=== PATIENT | female | born 1970 | race Caucasian/White ===

== ENCOUNTER → 2019-05-12 | Outpatient (CLI) | payer MEDICAID ==
[2019-05-12 12:52] LABS: Basophils # (A) 0.1 k/uL (0-0.2); Basophils % (A) 1 %; Eosinophils # (A) 0.2 k/uL (0-0.7); Eosinophils % (A) 2 %; HCT 38.5 % (34.0-46.0); INR 1.1 (<1.2); Lymphocytes # (A) 1.6 k/uL (1.0-4.8); Lymphocytes % (A) 25 %; MCH 32.1 pg (25.0-35.0); MCHC 33.7 g/dL (31.0-37.0); MCV 95.4 fL (80.0-100.0); Mean Platelet Volume 6.1; Monocytes # (A) 0.3 k/uL (0-1.0); Monocytes % (A) 4 %; Neutrophils # (A) 4.4 k/uL (1.3-7.7); Neutrophils % (A) 67 %; Platelet Count 273 k/uL (150-450); Prothrombin Time 11.3 sec (9.0-12.0); RBC 4.04 m/uL (3.80-5.40); WBC 6.5 k/uL (3.8-10.6)
[2019-05-12 12:58] LABS: Potassium 4.6 mmol/L (3.5-5.1)
== END | disposition home or self-care (01) ==
LOC: LABPAT 12:01
PROVIDERS: ATTEND Orthopaedic Surgery
DX: Z01.818 Encounter for other preprocedural examination (principal); Z01.812 Encounter for preprocedural laboratory examination; M16.12 Unilateral primary osteoarthritis, left hip
CPT/HCPCS: 36415; 80051; 85025; 85610; 87070; 93005

== ENCOUNTER 2019-05-18 08:33 | Inpatient (IN) | payer MEDICAID ==
[2019-05-11 15:36] VITALS: BMI 22.1
--- NOTE | 2019-05-17 19:04 | HP ---
HISTORY AND PHYSICAL DATE OF SURGERY: 05/18/2019 Reba Manzano is a 49-year-old patient seen with symptomatic left hip osteoarthritis. After treatment options were discussed with her, she elected to proceed with direct anterior left total hip arthroplasty. Consent regarding the procedure was obtained. PAST MEDICAL HISTORY: Noncontributory. PAST SURGICAL HISTORY: section. MEDICATIONS: None. ALLERGIES: SULFA and CODEINE. SOCIAL HISTORY: She smokes 1 pack of cigarettes daily. PHYSICAL EXAMINATION: Evaluation of the left hip, she has very limited range of motion with severe pain, diffuse tenderness about the hip girdle. Straight leg raise is negative. Her distal neurovascular exam is intact. RADIOGRAPHS: Radiographs of the left hip reveal severe osteoarthritic changes. IMPRESSION: 1. Left hip osteoarthritis. 2. Tobacco use. PLAN: Direct anterior left total hip arthroplasty. MMODL / IJN: [id number] /
[~2019-05-18 08:33] MED LIST: ACETAMINOPHEN TAB 500 MG TAB PO ONE; LIDOCAINE 1% 20 ML VIAL (10MG/ML) FOR IV START INTRADERMA PRN; MELOXICAM 7.5 MG TAB PO ONE; MIDAZOLAM 2 MG/2 ML VIAL IV PRN; ROPIVACAINE 246.25 MG, EPINEPHrine 0.5 MG, KETOROLAC 30 MG, cloNIDine HCL/PF 80 MCG, WA... MISCELLANE ONE; TRANEXAMIC ACID 1,000 MG in SODIUM CHLORIDE 0.9% 100 ML IVPB ONE; fentaNYL (PF) 50 MCG/ML 2 ML AMP IV PRN
[2019-05-18] MEDS: LACTATED RINGERS 1,000 ML IV SCH ×6 (09:10→17:16)
[2019-05-18] MEDS ORDERED: DEXAMETHASONE SOD PHOSPHATE 10 MG/ML 1 ML VIAL IV ONE (09:15)
[2019-05-18] MEDS ORDERED: ONDANSETRON 4 MG/2 ML VIAL IVP ONE (09:15)
[2019-05-18] MEDS ORDERED: MIDAZOLAM PF (FBP) 2 MG/2 ML VIAL IV ONE (09:40)
[2019-05-18] MEDS ORDERED: ceFAZolin 3,000 MG in SODIUM CHLORIDE 0.9% IRRIGATIO 3,000 ML IRRIGATION ONE (10:36)
[2019-05-18] MEDS ORDERED: LACTATED RINGERS 1,000 ML IV ONE (11:57)
[2019-05-18] MEDS ORDERED: NALOXONE 0.4 MG/ML 1 ML VIAL IV PRN (12:03)
[2019-05-18] MEDS ORDERED: HYDROcodone/APAP 5-325MG 1 EACH TAB PO PRN (12:03)
[2019-05-18] MEDS ORDERED: traMADol 50 MG TAB PO PRN (12:03)
[2019-05-18] MEDS ORDERED: ONDANSETRON 4 MG/2 ML VIAL IVP PRN (12:03)
[2019-05-18] MEDS ORDERED: HYDROmorphone 1 MG/ML 1 ML SYRINGE IVP PRN (12:03)
[2019-05-18] MEDS ORDERED: HYDROmorphone 0.5 MG/0.5 ML SYRINGE IVP PRN ×2 (12:03)
--- NOTE | 2019-05-18 12:03 | P.OP ---
Date of Procedure: 05/18/19 Preoperative Diagnosis: Left hip osteoarthritis Postoperative Diagnosis: Left hip osteoarthritis Procedure(s) Performed: Direct anterior left total hip arthroplasty Implants: 1. Depuy Actis size 3 standard collar press-fit femoral stem 2. Depuy pinnacle 50 mm press-fit acetabular shell 3. Depuy pinnacle polyethylene acetabular liner neutral 32 mm ID 50 mm OD 4. Depuy metal femoral head 32 mm +13 Anesthesia: local, spinal Surgeon: Jerome Gatica Material Man #1: Patel Bryant Estimated Blood Loss (ml): 300 Pathology: other (Femoral head) Condition: stable Disposition: PACU Indications for Procedure: 49-year-old patient seen with symptomatic left hip osteoarthritis. After treatment options were discussed, she elected to proceed with left total hip arthroplasty. Operative Findings: see description of procedure Description of Procedure: The patient was taken to the operative suite. Patient underwent a spinal anesthetic by the department of anesthesia. Patient was then transferred to the [place] table. Patient was given preoperative IV antibiotics and TXA. Both lower extremities were placed in standard leg spars. The hip was then prepped and draped in the normal sterile orthopedic fashion. A standard anterior incision was made beginning 3 cm lateral and 1 cm distal to the ASIS extending 10 cm. Dissection was then carried down through the subcutaneous soft tissues down to the fascia overlying the tensor fascia faizan. An incision was now made through the fascia. Careful dissection was taken down exposing the tensor fascia faizan muscle. A Cobra retractor was now placed along the medial femoral neck and a second one along the lateral femoral neck. The venous circumflex vessels were now identified, cauterized and clipped. We identified the anterior hip capsule. An incision was made through the hip capsule along the lateral border. I performed a partial anterior capsulectomy. Retractors were now placed around the femoral neck itself. A femoral neck cut was now made with a sagittal saw. It was completed with an osteotome at the lateral neck area. The femoral head was now removed without difficulty. The extremity was now rotated to 45 of external rotation. It was locked in position. Residual labrum was now debrided out. Serial reaming was performed of the acetabulum while Sagar SIFUENTES assisted holding an anterior retractor for exposure. Once we reached the appropriate size and a trial was position and fit nicely. The appropriate size was now chosen opened and made available. It was introduced into the acetabulum without difficulty. The C-arm/fluoroscopy was now brought into the operative field. We made sure we had a true AP pelvic view. We now under direct C- arm/fluoroscopy introduced into the acetabular component with appropriate version and inclination. I held the cup in appropriate position well Sagar SIFUENTES used a mallet to seat the acetabular component. I noted the component now to be well seated and stable. Acetabular cup introduce her was removed. The C-arm was pulled back. An appropriate liner was introduced and clicked into position. It was felt to be stable. At this point retractors were removed. The extremity was now placed into 120 external rotation with no traction. The leg was now dropped to the ground and adducted. Appropriate retractors were now positioned along the proximal femur. We also placed our femoral look into position. Additional capsular releasing was performed to gain access to the proximal femur. We now used a box osteotome. A canal finder was now utilized. Serial broaching was now performed with the assistance of Sagar SIFUENTES tapping the broaches down with a mallet while held the broach in appropriate rotation and position. This was done until we reached the appropriate size with good overall rotational stability. Appropriate calcar planing was performed. A trial head/neck was placed into position. The hip was now reduced. The C- arm/fluoroscopy was brought back into the operative field. The trial components appeared adequately aligned. An AP pelvis demonstrated good alignment of the trochanters to help confirm leg length. The C-arm/fluoroscopy was pulled back. Retractors were repositioned and the hip was dislocated. The leg was again taken down to the ground and adducted. Appropriate retractors were repositioned as well as the femoral hook. All trial components were removed. The femoral implant was opened along with the femoral head. The femoral implant was introduced on the appropriate handle into our pre-broached area. I held the component position well Sagar SIFUENTES used a mallet to seat the femoral component. The femoral component was now noted to be well seated and stable.. The femoral head was introduced with good positioning and fixation noted. Retractors were now removed. The hip was now reduced. There appeared be good positioning of the hip confirmed on intraoperative fluoroscopy. Spot films were obtained to document this. A second gram of TXA was given. The deep and superficial soft tissues were infiltrated with local analgesic. Bipolar cautery had been utilized intermittently through the procedure for hemostasis. The wound was irrigated copiously with pulse lavage mechanical irrigation. The fascia was repaired with Vicryl suture. The subcutaneous soft tissues were re paired in layers with Vicryl suture. The skin was approximated with pernio/Dermabond. Sterile dressings were applied. Patient was then awakened, transferred to a bed and taken to recovery in stable condition. Sagar SIFUENTES assisted with the complex procedure.
--- NOTE | 2019-05-18 12:06 | XR ---
EXAMINATION TYPE: XR Hip Limited LT, FL guidance operating room DATE OF EXAM: 05/18/2019 CLINICAL HISTORY: Left hip replacement TECHNIQUE: Fluoroscopy. COMPARISON: None. FINDINGS: Fluoroscopic guidance was provided during procedure performed by Dr. Gatica. A total o f 44 seconds of fluoroscopic time was utilized during the procedure and 3 spot images was acquired du ring a left hip replacement. IMPRESSION: As Above.
[2019-05-18] MEDS: HYDROcodone/APAP 5-325MG 1 EACH TAB PO PRN (20:56)
[2019-05-18] MEDS ORDERED: SENNOSIDES-DOCUSATE SODIUM 1 EACH TAB PO SCH (21:00)
[2019-05-18] MEDS ORDERED: traZODone HCL 100 MG TAB PO SCH (21:00)
[2019-05-18] MEDS: NICOTINE 14MG/24HR PATCH TRANSDERM SCH (21:04)
--- NOTE | 2019-05-18 22:23 | CONS ---
CONSULTATION REASON FOR CONSULTATION: Advice regarding DJD and other medical issues, requested by Dr. Gatica. HISTORY OF PRESENT ILLNESS: This 49-year-old woman with a past medical history of DJD, history of section, history of hysterectomy, being followed by a primary care physician in [place], was admitted after direct anterior left total hip joint arthroplasty by Dr. Gatica. There is no history of any chest pain. No history of palpitations. No history of headache, loss of consciousness, nausea, vomiting, diarrhea, fever, rigor or chills at this time. PAST MEDICAL HISTORY: 1. History of DJD. 2. History of section. 3. Hysterectomy. 4. History of nicotine dependence. HOME MEDICATIONS: Trazodone 200 mg at bedtime. ALLERGIES: CODEINE and SULFA. FAMILY HISTORY: No history of heart disease or strokes in the family. SOCIAL HISTORY: History of smoking, continued ongoing. REVIEW OF SYSTEMS: ENT: No diminished hearing. No diminished vision. CARDIOVASCULAR SYSTEM: No angina, palpitations. RESPIRATORY SYSTEM: No cough, hemoptysis. GI: No nausea, vomiting. : No dysuria or retention. NERVOUS SYSTEM: No numbness, weakness. ALLERGY/IMMUNOLOGY: No asthma, hayfever. MUSCULOSKELETAL: As mentioned earlier. HEMATOLOGY/ONCOLOGY: No history of anemia. ENDOCRINE: No history of diabetes, hypothyroidism. CONSTITUTIONAL: As mentioned earlier. DERMATOLOGY: Negative. RHEUMATOLOGY: Negative. PSYCHIATRY: As mentioned earlier. PHYSICAL EXAMINATION: Patient alert and oriented x3. Pulse 82, blood pressure 108/75, respiration 20, temperature 97.6, pulse ox 100% on room air. HEENT: Conjunctivae normal. Oral mucosa moist. NECK: No jugular venous distention. No carotid bruit. No lymph node enlargement. CARDIOVASCULAR SYSTEM: S1, S2 muffled. No S3. No S4. RESPIRATORY SYSTEM: Breath sounds diminished at the bases. No rhonchi. No crackles. ABDOMEN: Soft, non-tender. No mass palpable. LEGS: Status post left hip arthroplasty. NERVOUS SYSTEM: Higher functions as mentioned earlier. Moves all 4 limbs. No focal motor or sensory deficit. LYMPHATICS: No lymph node palpable in neck, axillae or groin. SKIN: No ulcer, rash, bleeding. JOINTS: No active deforming arthropathy. LABS: Labs which were done preoperatively showed hematology normal, coags normal, chemistries also normal. ASSESSMENT: 1. Status post left hip arthroplasty. 2. History of degenerative joint disease. 3. History of section. 4. History of hysterectomy. 5. History of nicotine dependence, continued ongoing. RECOMMENDATIONS AND DISCUSSION: In this 49-year-old woman who presented after hip surgery, I would recommend to continue the current medications, resume the home medication, DVT prophylaxis, incentive spirometry. Also recommend smoking cessation, Habitrol patch. We will follow the patient closely with you. Thank you, Dr. Gatica, for letting us participate in the care of this patient. Patient may be asked to follow up with her primary physician closely after discharge. MMODL / IJN: [id number] /
[2019-05-19] MEDS: HYDROcodone/APAP 5-325MG 1 EACH TAB PO PRN ×2 (03:46→09:25)
[2019-05-19] MEDS: LACTATED RINGERS 1,000 ML IV SCH ×2 (06:42→12:04)
[2019-05-19 07:40] LABS: Basophils % (A) 0 %; Eosinophils # (A) 0.1 k/uL (0-0.7); Eosinophils % (A) 1 %; HCT 31.2 % (34.0-46.0); HGB 10.4 gm/dL (11.4-16.0); Lymphocytes # (A) 1.3 k/uL (1.0-4.8); Lymphocytes % (A) 12 %; MCH 32.7 pg (25.0-35.0); MCHC 33.3 g/dL (31.0-37.0); MCV 98.1 fL (80.0-100.0); Mean Platelet Volume 6.3; Monocytes # (A) 0.6 k/uL (0-1.0); Monocytes % (A) 5 %; Neutrophils # (A) 8.8 k/uL (1.3-7.7); Neutrophils % (A) 81 %; Platelet Count 220 k/uL (150-450); RBC 3.18 m/uL (3.80-5.40); RDW 12.9 % (11.5-15.5); WBC 10.9 k/uL (3.8-10.6)
[2019-05-19 08:02] VITALS: BP 94/61; PULSE 89; RESP 15; TEMP 99.3
[2019-05-19] MEDS: NICOTINE 14MG/24HR PATCH TRANSDERM SCH (08:32)
[2019-05-19] MEDS ORDERED: ENOXAPARIN 40 MG/0.4 ML SYRINGE SQ SCH (09:00)
[2019-05-19] MEDS ORDERED: FAMOTIDINE 20 MG TAB PO SCH (09:00)
[2019-05-19] MEDS ORDERED: MELOXICAM 7.5 MG TAB PO SCH (09:00)
[2019-05-19] MEDS ORDERED: HYDROcodone/APAP 7.5-325MG 1 EACH TAB PO PRN ×2 (10:38)
--- NOTE | 2019-05-19 11:23 | P.PN ---
Subjective Progress Note Date: 05/19/19 Principal diagnosis: Status post left total hip arthroplasty Patient evaluated at bedside, she is resting comfortably. She did have a slight increase in pain this morning. She's ambulate well with therapy. She denies any chest pain or shortness of breath. Objective - Vital Signs Vital signs: Vital Signs Temp 99.3 F 05/19/19 07:34 Pulse 89 05/19/19 07:34 Resp 15 05/19/19 07:34 BP 94/61 05/19/19 07:34 Pulse Ox 96 05/19/19 07:34 Intake & Output 05/18/19 05/19/19 05/19/19 18:59 06:59 18:59 Intake Total 1551 720 0 Output Total 300 Balance 1251 720 0 Weight 66.224 kg Intake: IV 1551 Intake, IV Titration 720 Amount Lactated Ringers 1,000 ml 720 @ 80 mls/hr IV .[id number] NOAH Rx#:[id number] Oral 0 Output: Estimated Blood Loss 300 Other: Voiding Method Toilet Toilet # Voids 1 - Exam Left lower extremity: Incision is clean, dry, and intact. The exofin fusion tape is in good condition. There is minimal soft tissue swelling and ecchymosis surrounding the medial and lateral aspects of the incision. Calf is soft, no tenderness with palpation. Plantar flexion, dorsiflexion, EHL, FHL are intact. Sensory exam to light touch throughout the extremity is intact, dorsal pedis pulses 2+. - Labs CBC & Chem 7: 05/19/19 06:39 Labs: Abnormal Lab Results - Last 24 Hours (Table) 05/19/19 Range/Units 06:39 WBC 10.9 H (3.8-10.6) k/uL RBC 3.18 L (3.80-5.40) m/uL Hgb 10.4 L (11.4-16.0) gm/dL Hct 31.2 L (34.0-46.0) % Neutrophils # 8.8 H (1.3-7.7) k/uL Assessment and Plan Plan: Assessment: Postoperative day #1 status post her anterior left total hip arthroplasty Plan: Pain control, oral medication GI and DVT prophylaxis, aspirin 81 mg twice a day Wound care instructions discussed Home physical therapy and nursing after discharge Icing and elevating techniques discussed Medical recommendations Discharged home today Time with Patient: Less than 30
--- NOTE | 2019-05-19 11:25 | P.DS ---
Providers Date of admission: 05/18/19 08:33 Expected date of discharge: 05/19/19 Attending physician: Jerome Gatica Primary care physician: Crispin [facility] Course: Date of admission: 05/18/2019 Date of discharge: 05/19/2019 Admission diagnosis: Status post direct anterior left total hip arthroplasty Discharge diagnosis: Same Attending physician: Dr. Gatica Surgical procedures: Direct anterior left total hip arthroplasty Brief history: Patient is a 49-year-old female history of progressive primary left hip osteoarthritis. At this point patient has failed conservative treatment measures and has opted to proceed with a elective direct anterior left total hip arthroplasty. Hospital course: Details of patient's surgery can be found in operative report. Patient tolerated the procedure well and was subsequently transported to orthopedic floor. Patient's orthopeidc and medical care was provided daily. Patient had daily laboratory tests performed for evaluation of overall blood counts. Patient had daily physical therapy to include strengthening range of motion as well as education with walker ambulation. Patient was treated with Lovenox for their postoperative DVT prophylaxis during their inpatient stay. Patient was noted to have a relatively uneventful postoperative course. Patient reported satisfactory pain control with oral pain medications by postoperative day 0. Patient showed satisfactory progress with physical therapy. Patient moved steadily through the program and had no difficulty meeting the goals by postoperative day 1. Given patient's otherwise satisfactory course and having met physical therapy goals, plan is to discharge patient home on postoperative day 1. Discharge condition/disposition: Patient will be discharged home in stable condition. Discharge medications: Instructions are given on resumption of patient's normal daily medications per primary care recommendation, in addition patient will be prescribed [place] 7.5 mg/325 mg, tramadol 50 mg, Colace 100 mg, aspirin 81 mg. Discharge instructions: 1. Wound care and infection precautions, keep incision dry and covered while showering, no lotions, creams, moisturizers. No soaking, tubs, pools, hottubs. Do not scrub over the incision. 2. Weight-bear as tolerated with walker / cane until follow-up. 3. Ice and elevate when necessary. Do not exceed 20 minutes per hour with ice pack. 4. Utilize compression sleeve until seen at first follow up appointment. 5. Visiting nursing care. 6. Home physical therapy. 7. Pain meds and anticoagulants per prescription. 8. Pain medication has potential to cause constipation. Increase oral fluid and fiber intake. Contact primary care provider if you have not had a bowel movement within 48 hours after discharge 9. No anti-inflammatory medication until discussed at first post operative visit, this including Motrin, Aleve, Mobic, Diclofenac. 10. Follow up in office at 2 weeks postop with Sagar Bryant PA-C 11. Follow up with your primary care doctor 7-10 days after discharge. 12. Contact [facility] with any questions, . Procedures: Direct anterior left total hip arthroplasty Patient Condition at Discharge: Good Plan - Discharge Summary Discharge Rx Participant: Yes New Discharge Prescriptions: New Aspirin [Adult Low Dose Aspirin EC] 81 mg PO BID #60 tablet. Docusate [Colace] 100 mg PO DAILY #30 capsule HYDROcodone/APAP 7.5-325MG [[place] 7.5] 1 - 2 each PO Q6HR PRN #56 tab PRN Reason: Pain traMADol HCl [Ultram] 50 mg PO Q6H PRN #28 tab PRN Reason: Pain No Action traZODone HCL [Desyrel] 200 mg PO HS Discharge Medication List traZODone HCL [Desyrel] 200 mg PO HS 05/11/19 [History] Aspirin [Adult Low Dose Aspirin EC] 81 mg PO BID #60 tablet. 05/19/19 [Rx] Docusate [Colace] 100 mg PO DAILY #30 capsule 05/19/19 [Rx] HYDROcodone/APAP 7.5-325MG [[place] 7.5] 1 - 2 each PO Q6HR PRN #56 tab 05/19/19 [Rx] traMADol HCl [Ultram] 50 mg PO Q6H PRN #28 tab 05/19/19 [Rx] Follow up Appointment(s)/Referral(s): Patel Bryant PAC [PHYSICIAN ROPE [employer] MACHINE OPERATOR] - 2 Weeks [facility], [REFERRING] - As Needed Patient Instructions/Handouts: Pain Management After Surgery (DC), Anterior Hip Replacement (DC) Activity/Diet/Wound Care/Special Instructions: Orthopedic Discharge Instructions: 1. Wound care and infection precautions, keep incision dry and covered while showering, no lotions, creams, moisturizers. No soaking, pools, hot tubs. Do not scrub over incision. 2. Weight-bear as tolerated with walker / cane until follow-up. 3. Ice and elevate when necessary. Do not exceed 20 minutes per hour with ice pack. 4. Utilize compression sleeve until seen at first follow up appointment. 5. Pain meds and anticoagulants per prescription. 6. Pain medication has potential to cause constipation. Increase oral fluid and fiber intake. Contact primary care provider if you have not had a bowel movement within 48 hours after discharge. 7. No anti-inflammatory medication until discussed at first post operative visit, this including Motrin, Aleve, Mobic, Diclofenac. 8. Follow up in office at 2 weeks postop with Sagar Bryant PA-C 9. Follow up with your primary care doctor 7-10 days after discharge. 10. Contact [facility] with any questions, . Discharge Disposition: HOME WITH HOME HEALTH SERVICES
== END 2019-05-19 13:50 | disposition home health service (06) | DRG 470 ==
LOC: 2ORMAIN 08:33 → 4SSUR 12:00
PROVIDERS: ADMIT Orthopaedic Surgery; ATTEND Orthopaedic Surgery
PROC: 0SRB02A Replacement of Left Hip Joint with Metal on Polyethylene Synthetic Substitute, Uncemented, Open Approach (ICD-10-PCS; principal; 2019-05-18 10:25)
DX: M16.12 Unilateral primary osteoarthritis, left hip (principal); F17.210 Nicotine dependence, cigarettes, uncomplicated; Z79.899 Other long term (current) drug therapy; Z90.710 Acquired absence of both cervix and uterus; Z98.891 History of uterine scar from previous surgery; Z88.5 Allergy status to narcotic agent; Z88.2 Allergy status to sulfonamides; F41.9 Anxiety disorder, unspecified
CPT/HCPCS: 73501; 85025; 86850; 86900; 86901; 88300

== ENCOUNTER 2019-07-27 14:27 | Inpatient (IN) | payer MEDICAID ==
[2019-07-23 11:32] VITALS: BMI 22.1
--- NOTE | 2019-07-26 16:23 | HP ---
HISTORY AND PHYSICAL REASON FOR ADMISSION: Surgery is 07/27/2019 HISTORY OF PRESENT ILLNESS: Reba Manzano is a 49-year-old patient seen with left hip painful and unstable total hip arthroplasty with previous history of total hip arthroplasty. I discussed this. She had noted she had undergone 2 recent dislocations. I reviewed revision. Reviewed the procedure, risks, complications, benefits, recovery. She was agreeable. Consent was obtained. PAST MEDICAL HISTORY: Noncontributory. PAST SURGICAL HISTORY: Total hip arthroplasty, section. DAILY MEDICATIONS: None. ALLERGIES: ALLERGIES ARE SULFA, CODEINE. SOCIAL HISTORY: Smokes 1 pack of cigarettes daily. PHYSICAL EXAMINATION: Evaluation of the left hip, she has well-healed incision. Diffuse weakness. Good range of motion. Incision well healed. Distal neurovascular exam is intact. RADIOGRAPHS: Of her left hip reveal stable appearing total hip arthroplasty. IMPRESSION: Unstable/painful left total hip arthroplasty. PLAN: Revision left total hip arthroplasty. Surgery 07/27/2019. MMODL / IJN: [id number] /
[~2019-07-27 14:27] MED LIST changes: -LIDOCAINE 1% 20 ML VIAL (10MG/ML) FOR IV START INTRADERMA PRN; -MIDAZOLAM 2 MG/2 ML VIAL IV PRN; -fentaNYL (PF) 50 MCG/ML 2 ML AMP IV PRN
[2019-07-27] MEDS: LACTATED RINGERS 1,000 ML IV SCH ×2 (15:11→20:30)
[2019-07-27] MEDS ORDERED: ONDANSETRON 4 MG/2 ML VIAL IVP ONE (15:13)
[2019-07-27 15:51] LABS: HCT 35.2 % (34.0-46.0); HGB 11.7 gm/dL (11.4-16.0); MCH 32.5 pg (25.0-35.0); MCHC 33.1 g/dL (31.0-37.0); MCV 98.1 fL (80.0-100.0); Mean Platelet Volume 7.8; Platelet Count 297 k/uL (150-450); RBC 3.59 m/uL (3.80-5.40); RDW 12.4 % (11.5-15.5); WBC 6.5 k/uL (3.8-10.6)
[2019-07-27] MEDS ORDERED: SODIUM CHLORIDE 0.9% 100 ML BAG ONE (17:19)
[2019-07-27] MEDS ORDERED: MIDAZOLAM 2 MG/2 ML VIAL ONE (17:19)
[2019-07-27] MEDS ORDERED: TRANEXAMIC ACID 1,000 MG/10 ML VIAL ONE (17:19)
[2019-07-27] MEDS ORDERED: HYDROmorphone (PF) 1 MG/ML ONE (17:19)
[2019-07-27] MEDS ORDERED: PROPOFOL 10 MG/ML 20 ML VIAL IV ONE (17:19)
[2019-07-27] MEDS ORDERED: fentaNYL (PF) 50 MCG/ML 2 ML AMP ONE (17:19)
[2019-07-27] MEDS ORDERED: LACTATED RINGERS 1,000 ML IV ONE (18:40)
[2019-07-27] MEDS ORDERED: HYDROcodone/APAP 7.5-325MG 1 EACH TAB PO PRN (19:05)
[2019-07-27] MEDS ORDERED: HYDROmorphone 1 MG/ML 1 ML SYRINGE IVP PRN (19:05)
[2019-07-27] MEDS ORDERED: ONDANSETRON 4 MG/2 ML VIAL IVP PRN (19:05)
[2019-07-27] MEDS ORDERED: NALOXONE 0.4 MG/ML 1 ML VIAL IV PRN (19:05)
[2019-07-27] MEDS ORDERED: HYDROmorphone 0.5 MG/0.5 ML SYRINGE IVP PRN (19:05)
--- NOTE | 2019-07-27 19:05 | P.OP ---
Date of Procedure: 07/27/19 Preoperative Diagnosis: unstable/painful left total hip arthroplasty Postoperative Diagnosis: same Procedure(s) Performed: revision left total hip arthroplasty Implants: 1. Depuy 28 mm/8.5 metallic femoral head 2. Depuy constrained polyethylene acetabular liner +4 neutral 28 mm ID 50 mm OD Anesthesia: local, spinal Surgeon: Jerome Gatica Computer Applications Instructor #1: Patel Bryant Estimated Blood Loss (ml): 150 Pathology: none sent Condition: stable Disposition: PACU Indications for Procedure: 49-year-old patient who was seen with an unstable and painful left total hip arthroplasty. I discussed revision. Patient was agreeable and consent was obtained. Operative Findings: see description of procedure Description of Procedure: the patient was taken to the operative suite. The patient underwent a spinal anesthetic by the department of anesthesia. The patient was transferred to the [place] table. Both lower extremities were placed in standard spars. The left hip was now prepped and draped in the normal sterile orthopedic fashion. An incision was now made through previous cicatrix. I dissected down to the fascia. An incision was made through the fascia. I then placed my retractors around the acetabulum exposing the arthroplasty medially. Stability was checked and we noted multidirectional instability. At this point hip was dislocated. The femoral head was removed. The acetabular polyethylene liner was removed. I now irrigated the wound out copiously with pulse lavage mechanical irrigation. I chose aconstrained polyethylene acetabular liner 50 mm OD and 28 mm ID. It was clicked into position. It was noted to be stable. We then placed our metallic constrained liner ring around the trunnion. I now introduced a 28 mm 8.5 mm metallic head and secured it to the trunnion. I now reduce the hip. I now placed that metallic constrained liner position and clicked into position. It was stable. The hip was stable. I took her through range of motion we had overall excellent stability through all ranges of motion. C-arm was brought in confirming adequate alignment. The C-arm was pulled back. The wound was irrigated copiously with pulse lavage mechanical irrigation. The deep soft tissues were infiltrated local analgesic. The subcutaneous soft tissues were infiltrated local analgesic. The fascia was repaired with #1 Vicryl. The subcu soft tissues repaired with 2-0 Vicryl. The skin was repaired with a running subcuticular suture followed skin glue. Sterile dressings were applied. The patient was then awakened, transferred to a bed and taken recovery stable condition. Sagar SIFUENTES assisted the procedure.
[2019-07-27] MEDS ORDERED: SENNOSIDES-DOCUSATE SODIUM 1 EACH TAB PO SCH (21:00)
[2019-07-28] MEDS: HYDROcodone/APAP 7.5-325MG 1 EACH TAB PO PRN ×2 (00:05→08:12)
[2019-07-28] MEDS: HYDROmorphone 0.5 MG/0.5 ML SYRINGE IVP PRN ×2 (04:31→08:11)
[2019-07-28] MEDS: LACTATED RINGERS 1,000 ML IV SCH ×2 (04:32→04:33)
[2019-07-28 07:11] LABS: Basophils % (A) 0 %; Eosinophils # (A) 0.2 k/uL (0-0.7); Eosinophils % (A) 2 %; HCT 30.8 % (34.0-46.0); HGB 10.2 gm/dL (11.4-16.0); Lymphocytes % (A) 10 %; MCH 32.6 pg (25.0-35.0); MCHC 33.1 g/dL (31.0-37.0); MCV 98.3 fL (80.0-100.0); Mean Platelet Volume 8.1; Monocytes # (A) 0.4 k/uL (0-1.0); Monocytes % (A) 4 %; Neutrophils # (A) 8.2 k/uL (1.3-7.7); Neutrophils % (A) 83 %; Platelet Count 247 k/uL (150-450); RBC 3.14 m/uL (3.80-5.40); RDW 12.3 % (11.5-15.5); WBC 9.8 k/uL (3.8-10.6)
[2019-07-28 08:11] VITALS: BP 130/80; PULSE 84; RESP 18; TEMP 98.1
--- NOTE | 2019-07-28 08:42 | XR ---
EXAMINATION TYPE: XR Hip Limited LT, FL guidance operating room DATE OF EXAM: 07/27/2019 CLINICAL HISTORY: Fluoroscopic documentation during left anterior hip revision TECHNIQUE: Fluoroscopy. COMPARISON: None. FINDINGS: Fluoroscopic guidance was provided during procedure performed by Dr. Gatica. A total o f 10 seconds of fluoroscopic time was utilized during the procedure and 2 spot images was acquired. IMPRESSION: As Above.
[2019-07-28] MEDS ORDERED: MELOXICAM 7.5 MG TAB PO SCH (09:00)
[2019-07-28] MEDS ORDERED: FAMOTIDINE 20 MG TAB PO SCH (09:00)
[2019-07-28] MEDS ORDERED: ENOXAPARIN 40 MG/0.4 ML SYRINGE SQ SCH (09:00)
--- NOTE | 2019-07-28 10:53 | P.PN ---
Subjective Progress Note Date: 07/28/19 Principal diagnosis: Status post revision left total hip arthroplasty Patient evaluated at bedside, she's doing very well. She is ambulating well with therapy. She denies chest pain, shortness of breath or fever or chills. Objective - Vital Signs Vital signs: Vital Signs Temp 98.1 F 07/28/19 08:10 Pulse 84 07/28/19 08:10 Resp 18 07/28/19 08:10 BP 130/80 07/28/19 08:10 Pulse Ox 97 07/28/19 08:10 Intake & Output 07/27/19 07/28/19 07/28/19 18:59 06:59 18:59 Intake Total 1150 1740 Output Total 150 Balance 1000 1740 Weight 68.039 kg 68.039 kg Intake: IV 1150 150 Intake, IV Titration 1050 Amount Lactated Ringers 1,000 ml 1000 @ 100 mls/hr IV .Q10H NOAH Rx#:[id number] ceFAZolin 2 gm In Sodium 50 Chloride 0.9% 50 ml @ 100 mls/hr IVPB Q8HR NOAH Rx# :[id number] Oral 540 Output: Estimated Blood Loss 150 Other: Voiding Method Toilet # Voids 1 - Exam Left lower extremity: Incision is clean, dry, and intact. The exofin fusion tape is in good condition. There is minimal soft tissue swelling and ecchymosis surrounding the medial and lateral aspects of the incision. Calf is soft, no tenderness with palpation. Plantar flexion, dorsiflexion, EHL, FHL are intact. Sensory exam to light touch throughout the extremity is intact, dorsal pedis pulses 2+. - Labs CBC & Chem 7: 07/28/19 06:35 Labs: Abnormal Lab Results - Last 24 Hours (Table) 07/27/19 07/28/19 Range/Units 15:07 06:35 RBC 3.59 L 3.14 L (3.80-5.40) m/uL Hgb 10.2 L (11.4-16.0) gm/dL Hct 30.8 L (34.0-46.0) % Neutrophils # 8.2 H (1.3-7.7) k/uL Assessment and Plan Plan: Assessment: Postoperative day #1 status post revision left total hip arthroplasty Plan: Pain control, plan for discharge home on oral medication GI and DVT prophylaxis, aspirin 81 mg twice a day Wound care instructions discussed Physical therapy after discharge Medical recommendations Discharge planning: Patient will be discharged home today Time with Patient: Less than 30
--- NOTE | 2019-07-28 10:56 | P.DS ---
Providers Date of admission: 07/27/19 14:27 Expected date of discharge: 07/28/19 Attending physician: Jerome Gatica Consults: 07/27/19 19:05 Consult Physician Routine Consulting Provider: Sarahi Chawla Consult Reason/Comments: Medical management Do you want consulting provider notified?: Yes Primary care physician: Stated None Hospital Course: Date of admission: 07/27/2019 Date of discharge: 07/28/2019 Admission diagnosis: Status post revisional total hip arthroplasty Discharge diagnosis: Same Attending physician: Dr. Gatica Surgical procedures: Revision left total hip arthroplasty Brief history: Patient is a 49-year-old female with a history of a previous left total hip arthroplasty direct anterior approach. On 2 separate occasions patient's had a hip dislocation that required relocation procedure. Conservative measures were attempted, she elected to proceed with a revision of left total hip arthroplasty on 07/27/2019. Hospital course: Details of patient's surgery can be found in operative report. Patient tolerated the procedure well and was subsequently transported to orthopedic floor. Patient's orthopeidc and medical care was provided daily. Patient had daily laboratory tests performed for evaluation of overall blood counts. Patient had daily physical therapy to include strengthening range of motion as well as education with walker ambulation. Patient was treated with Lovenox for their postoperative DVT prophylaxis during their inpatient stay. Patient was noted to have a relatively uneventful postoperative course. Patient reported satisfactory pain control with oral pain medications by postoperative day 0. Patient showed satisfactory progress with physical therapy. Patient moved steadily through the program and had no difficulty meeting the goals by postoperative day 1. Given patient's otherwise satisfactory course and having met physical therapy goals, plan is to discharge patient home on postoperative day 1. Discharge condition/disposition: Patient will be discharged home in stable condition. Discharge medications: Instructions are given on resumption of patient's normal daily medications per primary care recommendation, in addition patient will be prescribed [place] 7. 5 mg/325 mg, tramadol 50 mg, Colace 100 mg, aspirin 81 mg Discharge instructions: 1. Wound care and infection precautions, keep incision dry and covered while showering, no lotions, creams, moisturizers. No soaking, tubs, pools, hottubs. Do not scrub over the incision. 2. Weight-bear as tolerated with walker / cane until follow-up. 3. Ice and elevate when necessary. Do not exceed 20 minutes per hour with ice pack. 4. Utilize compression sleeve until seen at first follow up appointment. 5. Visiting nursing care. 6. Home physical therapy. 7. Pain meds and anticoagulants per prescription. 8. Pain medication has potential to cause constipation. Increase oral fluid and fiber intake. Contact primary care provider if you have not had a bowel movement within 48 hours after discharge 9. No anti-inflammatory medication until discussed at first post operative visit, this including Motrin, Aleve, Mobic, Diclofenac. 10. Follow up in office at 2 weeks postop with Sagar Bryant PA-C 11. Follow up with your primary care doctor 7-10 days after discharge. 12. Contact [facility] with any questions, . Procedures: Revision left total hip arthroplasty Patient Condition at Discharge: Good Plan - Discharge Summary Discharge Rx Participant: Yes New Discharge Prescriptions: New Aspirin [Adult Low Dose Aspirin EC] 81 mg PO BID #60 tablet. HYDROcodone/APAP 7.5-325MG [[place] 7.5] 1 - 2 each PO Q6HR PRN #56 tab PRN Reason: Pain traMADol HCl [Ultram] 50 mg PO Q6H PRN #28 tab PRN Reason: Pain No Action traZODone HCL [Desyrel] 200 mg PO HS Discharge Medication List traZODone HCL [Desyrel] 200 mg PO HS 05/11/19 [History] Aspirin [Adult Low Dose Aspirin EC] 81 mg PO BID #60 tablet. 07/28/19 [Rx] HYDROcodone/APAP 7.5-325MG [[place] 7.5] 1 - 2 each PO Q6HR PRN #56 tab 07/28/19 [Rx] traMADol HCl [Ultram] 50 mg PO Q6H PRN #28 tab 07/28/19 [Rx] Follow up Appointment(s)/Referral(s): Jerome Gatica DO [Doctor of Osteopathic Medicine] - 08/19/19 3:40 pm Activity/Diet/Wound Care/Special Instructions: Orthopedic Discharge Instructions: 1. Wound care and infection precautions, keep incision dry and covered while showering, no lotions, creams, moisturizers. No soaking, pools, hot tubs. Do not scrub over incision. 2. Weight-bear as tolerated with walker / cane until follow-up. 3. Ice and elevate when necessary. Do not exceed 20 minutes per hour with ice pack. 4. Utilize compression sleeve until seen at first follow up appointment. 5. Pain meds and anticoagulants per prescription. 6. Pain medication has potential to cause constipation. Increase oral fluid and fiber intake. Contact primary care provider if you have not had a bowel movement within 48 hours after discharge. 7. No anti-inflammatory medication until discussed at first post operative visit, this including Motrin, Aleve, Mobic, Diclofenac. 8. Follow up in office at 2 weeks postop with Sagar Bryant PA-C 9. Follow up with your primary care doctor 7-10 days after discharge. 10. Contact [facility] with any questions, [phone]. 11. Please make an appointment to begin Outpatient Physical Therapy this week. Discharge Disposition: HOME WITH HOME HEALTH SERVICES
--- NOTE | 2019-07-28 15:45 | P.CONS ---
History of Present Illness - Reason for Consult Consult date: 07/28/19 (delayed charting seen at 0930) Insomnia Requesting physician: Jerome Gatica - Chief Complaint left hip arthroplasty - History of Present Illness Patient is a 49-year-old female past medical history of arthritis, insomnia, and tobacco abuse who presented for elective left total hip revision. She tolerated the procedure well without any immediate postoperative complications. Patient seen and examined at bedside. She is having increased pain overnight last night but this resolved with additional 1 dose of Dilaudid on top of her [place]. She is feeling well has been up and ambulating wants to be discharged home. She denies any nausea, shortness of breath, lightheadedness or dizziness. She states that she was feeling well prior to surgery other than having 2 hip dislocations last 3 weeks. She denies any recent cough, cold, fever, flu, nausea, vomiting, or diarrhea. Review of Systems Pertinent positives and negatives as discussed in HPI, a complete review of systems was performed and all other systems are negative. Past Medical History Past Medical History: Osteoarthritis (OA) Additional Past Medical History / Comment(s): Insomnia History of Any Multi-Drug Resistant Organisms: None Reported Past Surgical History: Section, Hysterectomy, Joint Replacement Additional Past Surgical History / Comment(s): C/S x4. LT JIGNA 05/18/19 Past Anesthesia/Blood Transfusion Reactions: No Reported Reaction Past Psychological History: No Psychological Hx Reported Smoking Status: Current every day smoker Past Alcohol Use History: None Reported Additional Past Alcohol Use History / Comment(s): 1ppd for 30 yrs. Past Drug Use History: None Reported Additional History: Lives with and children. No assistive devices. - Past Family History Mother Family Medical History: No Reported History Medications and Allergies Home Medications Medication Instructions Recorded Confirmed Type traZODone HCL [Desyrel] 200 mg PO HS 05/11/19 07/27/19 History Aspirin [Adult Low Dose Aspirin EC] 81 mg PO BID #60 tablet. 07/28/19 Rx HYDROcodone/APAP 7.5-325MG [[place] 1 - 2 each PO Q6HR PRN #56 tab 07/28/19 Rx 7.5] traMADol HCl [Ultram] 50 mg PO Q6H PRN #28 tab 07/28/19 Rx Allergies Allergy/AdvReac Type Severity Reaction Status Date / Time codeine Allergy lip Verified 07/23/19 11:19 swelling, itchiness Sulfa (Sulfonamide Allergy lip Verified 07/23/19 11:19 Antibiotics) swelling, itchiness Physical Exam Osteopathic Statement: *. No significant issues noted on an osteopathic structural exam other than those noted in the History and Physical/Consult. Vitals: Vital Signs Temp Pulse Pulse Resp BP BP Pulse Ox 07/28/19 08:10 98.1 F 84 18 130/80 97 07/28/19 00:54 97.5 F L 80 16 112/69 94 L 07/27/19 22:15 78 109/68 97 07/27/19 22:00 73 104/68 97 07/27/19 21:45 76 108/67 96 07/27/19 21:30 76 113/72 96 07/27/19 21:15 73 110/73 100 07/27/19 21:00 68 123/76 100 07/27/19 20:45 82 146/69 94 L 07/27/19 20:30 76 143/82 97 07/27/19 20:15 97.5 F L 73 16 120/74 100 07/27/19 19:59 66 16 112/55 99 07/27/19 19:44 63 16 112/57 99 07/27/19 19:29 75 16 110/58 97 07/27/19 19:14 97.6 F 78 14 123/63 99 07/27/19 14:53 98.2 F 74 16 159/77 100 Intake and Output 07/27/19 07/28/19 07/28/19 22:59 06:59 14:59 Intake Total 1540 1350 Output Total 150 Balance 1390 1350 Intake: IV 1300 Intake, IV Titration 1050 Amount Lactated Ringers 1,000 ml 1000 @ 100 mls/hr IV .Q10H NOAH Rx#:[id number] ceFAZolin 2 gm In Sodium 50 Chloride 0.9% 50 ml @ 100 mls/hr IVPB Q8HR NOAH Rx# :[id number] Oral 240 300 Output: Estimated Blood Loss 150 Other: Voiding Method Toilet # Voids 1 Weight 68.039 kg General: non toxic, no distress, appears at stated age, normal weight Derm: no unusual rashes/lesions no unusual ecchymoses, warm, dry Head: atraumatic, normocephalic, symmetric Eyes: EOMI, no lid lag, anicteric sclera, pupils equal round reactive to light ENT: Nose and ears atraumatic, no thrush, no pharyngeal erythema Neck: No thyromegaly, no cervical lymphadenopathy, trachea midline, supple Mouth: no lip lesion, mucus membranes moist Cardiovascular: S1S2 reg, no murmur, positive posterior tibial pulse bilateral, no edema, capillary refill less than 2 seconds Lungs: CTA bilateral, no rhonchi, no rales , no accessory muscle use Abdominal: soft, nontender to palpation, no guarding, no appreciable organomegaly, normal bowel sounds Ext: no gross muscle atrophy, muscle strength 5 out of 5 in all 4 extremities grossly, no contractures, Neuro: CN II-XI grossly intact, light touch intact all 4 extremities, finger to nose within normal limits, Psych: Alert, oriented, appropriate affect Results CBC & Chem 7: 07/28/19 06:35 Labs: Abnormal Lab Results - Last 24 Hours (Table) 07/27/19 07/28/19 Range/Units 15:07 06:35 RBC 3.59 L 3.14 L (3.80-5.40) m/uL Hgb 10.2 L (11.4-16.0) gm/dL Hct 30.8 L (34.0-46.0) % Neutrophils # 8.2 H (1.3-7.7) k/uL Assessment and Plan Assessment: Patient is a 49-year-old female status post left total hip arthroplasty revision Insomnia -Resume trazodone discharge Acute blood loss anemia - mild should resolve with normal diet - no need to continue to monitor at this time. Tobacco abuse - cessation - nicotine replacement Medically optimized for discharge at the discretion of ortho.
[2019-07-28] MEDS ORDERED: traZODone HCL 100 MG TAB PO SCH (21:00)
== END 2019-07-28 12:35 | disposition home or self-care (01) | DRG 467 ==
LOC: 2ORMAIN 14:27 → 4SSUR 19:54
PROVIDERS: ADMIT Orthopaedic Surgery; ATTEND Orthopaedic Surgery
PROC: 0SPB0JZ Removal of Synthetic Substitute from Left Hip Joint, Open Approach (ICD-10-PCS; principal; 2019-07-27 09:30)
PROC: 0SRB02Z Replacement of Left Hip Joint with Metal on Polyethylene Synthetic Substitute, Open Approach (ICD-10-PCS; principal; 2019-07-27 09:30)
DX: T84.021A Dislocation of internal left hip prosthesis, initial encounter (principal); D62 Acute posthemorrhagic anemia; Y83.8 Other surgical procedures as the cause of abnormal reaction of the patient, or of later complication, without mention of misadventure at the time of the procedure; Z88.5 Allergy status to narcotic agent; Z88.2 Allergy status to sulfonamides; F17.210 Nicotine dependence, cigarettes, uncomplicated; G47.00 Insomnia, unspecified; Z79.82 Long term (current) use of aspirin; Z90.710 Acquired absence of both cervix and uterus
CPT/HCPCS: 73501; 85025; 85027; 86850; 86900; 86901

== ENCOUNTER → 2024-12-11 | Outpatient (CLI) | payer OTHER ==
[2024-12-11 18:21] LABS: Basophils # (A) 0.09 X 10*3/uL (0.00-0.10); Eosinophils # (A) 0.28 X 10*3/uL (0.04-0.35); HCT 40.9 % (37.2-46.3); HGB 12.7 g/dL (12.0-15.0); Lymphocytes # (A) 2.18 X 10*3/uL (0.90-5.00); Lymphocytes % (A) 23.6 %; MCH 28.7 pg (27.0-32.0); MCHC 31.1 g/dL (32.0-37.0); MCV 92.3 FL (80.0-97.0); Mean Platelet Volume 10.6 FL (9.5-12.2); Monocytes # (A) 0.51 X 10*3/uL (0.20-1.00); Monocytes % (A) 5.5 %; NRBC Per 100 WBC 0 X 10*3/uL (0.00-0.01); Neutrophils # (A) 6.14 X 10*3/uL (1.80-7.70); Neutrophils % (A) 66.7 %; Platelet Count 297 X 10*3/uL (140-440); RBC 4.43 X 10*6/uL (4.10-5.20); WBC 9.22 X 10*3/uL (4.50-10.00)
[2024-12-11 18:31] LABS: Anion Gap 12.8 mmol/L (4.00-12.00); Carbon Dioxide 25.2 mmol/L (21.6-31.8); Potassium 4.4 mmol/L (3.5-5.5)
== END | disposition home or self-care (01) ==
LOC: LABPAT 12:10
PROVIDERS: ATTEND Orthopaedic Surgery
DX: Z01.818 Encounter for other preprocedural examination (principal); I44.0 Atrioventricular block, first degree; I51.7 Cardiomegaly; M23.91 Unspecified internal derangement of right knee
CPT/HCPCS: 80051; 85025; 93005